=== PATIENT | female | born 1985 | race Caucasian/White ===

== ENCOUNTER 2023-03-25 23:30 | Emergency (ER) | payer BC, SELFPAY ==
--- NOTE | ~2023-03-25 | XR_ITS ---
EXAMINATION: XR clavicle LT DATE: 03/26/2023 00:52 INDICATION: Left shoulder pain. Fall. TECHNIQUE: 2 views of left clavicle were obtained. COMPARISON: None. FINDINGS: There is a comminuted fracture involving middle third of left clavicle. The main distal fra cture fragment demonstrates 2 shaft widths inferior displacement. Coracoclavicular interval is normal . Joint spaces are normal. IMPRESSION: 1. Comminuted fracture of left clavicle. Reviewed, dictated and finalized at location A.
--- NOTE | ~2023-03-25 | XR_ITS ---
EXAMINATION: XR shoulder LT min 2V DATE: 03/26/2023 00:52 INDICATION: Left shoulder pain. Fall. TECHNIQUE: 4 views of left shoulder were obtained. COMPARISON: None. FINDINGS: There is a comminuted fracture involving middle third of left clavicle. The main distal fra cture fragment demonstrates 2 shaft widths inferior displacement. Coracoclavicular interval is normal . Joint spaces are normal. IMPRESSION: 1. Comminuted fracture of left clavicle. Reviewed, dictated and finalized at location A.
[2023-03-25 23:35] VITALS: BP 146/81; PULSE 81; RESP 19; TEMP 36.4; O2SAT 100
[2023-03-26] MEDS: HYDROcodone/acetaminophen (*CRX) 5-325 MG TABLET 1 TAB PO (00:25)
--- NOTE | 2023-03-26 00:58 | ED.GENADULT ---
HPI - General Adult General Chief complaint: Fall Stated complaint: Fall down 9 stairs, left shoulder pain Time Seen by Provider: 03/26/23 00:11 History of Present Illness HPI narrative: Patient is a 37-year-old female who presents the emergency department with chief complaint of left shoulder pain patient reports that she had a few drinks tonight and was walking up the steps slipped and fell patient reports that she landed on her left shoulder which she had previously injured when she was a child patient reports pain with range of motion and reports that the symptoms are worse with movement. Related Data Allergies Allergy/AdvReac Type Severity Reaction Status Date / Time amoxicillin Allergy Swelling Verified 03/25/23 23:32 of Lip/Tongue/Throat Review of Systems Review of Systems: A 10 system review of systems was completed on the patient and is negative except for what is stated in the HPI. Nursing and ancillary documentation was reviewed. Exam Narrative: GENERAL: Well-appearing, well-nourished, and in no acute distress. HEAD: Normocephalic, atraumatic. EYES: PERRLA and EOMI. ENT: Nares clear, no rhinorrhea or epistaxis. Mucous membranes moist. NECK: Supple. CHEST: Clear to auscultation. No respiratory distress. HEART: Regular rate and rhythm. No murmur heard. Normal peripheral pulses. ABDOMEN: Soft, nontender, nondistended, normal active bowel sounds. EXTREMITIES: Normal range of motion except for left upper extremity there is tenderness to palpation in the left shoulder worse with range of motion.. No edema. SKIN: Warm, dry, no rash. NEURO: No focal deficits. Alert and oriented x3. PSYCH: Normal mood and affect. Course Vital Signs Vital signs: Vital Signs Temperature 36.4 C 03/25/23 23:35 Pulse Rate 81 03/25/23 23:35 Respiratory Rate 03/25/23 23:35 Blood Pressure 146/81 H 03/25/23 23:35 Pulse Oximetry 100 03/25/23 23:35 Oxygen Delivery Room Air 03/25/23 23:35 Temperature 36.4 C 03/25/23 23:35 Pulse Rate 81 03/25/23 23:35 Respiratory Rate 19 03/25/23 23:35 Blood Pressure 146/81 H 03/25/23 23:35 Pulse Oximetry 100 03/25/23 23:35 Oxygen Delivery Room Air 03/25/23 23:35 Medical Decision Making MDM Narrative Medical decision making narrative: The patient is currently GCS 15 and showing no signs of intracranial injury. The patient has tenderness in the left shoulder concerning for clavicle fracture. Plain film x-rays of the left shoulder and clavicle showed evidence of displaced clavicle fracture. The patient will be placed in a sling and will be referred to orthopedics Vital Signs Vital Signs: Vital Signs Temperature 36.4 C 03/25/23 23:35 Pulse Rate 81 03/25/23 23:35 Respiratory Rate 03/25/23 23:35 Blood Pressure 146/81 H 03/25/23 23:35 Pulse Oximetry 100 03/25/23 23:35 Oxygen Delivery Room Air 03/25/23 23:35 Temperature 36.4 C 03/25/23 23:35 Pulse Rate 81 03/25/23 23:35 Respiratory Rate 03/25/23 23:35 Blood Pressure 146/81 H 03/25/23 23:35 Pulse Oximetry 100 03/25/23 23:35 Oxygen Delivery Room Air 03/25/23 23:35 Discharge Plan Discharge Clinical Impression: Closed fracture of left clavicle Patient Disposition: Home, Self-Care Condition: Stable Instructions: Antibiotic Form, Clavicle Fracture (DC), How to Use a Sling (ED) Prescriptions: New hydrocodone-acetaminophen 5-325 mg tablet 1 tablet PO Q6H PRN (Reason: pain) 3 Days Qty: 12 0RF Follow-up/Referrals: PHYSICIAN NOT ON STAFF,NONSTAFF [Primary Care Provider] - Linwood Pickett MD [Physician] - Time of Disposition: 01:05
== END 2023-03-26 01:25 | disposition home or self-care (01) ==
PROVIDERS: Emergency Provider Emergency Medicine
DX: S42.022A Displaced fracture of shaft of left clavicle, initial encounter for closed fracture (principal); W10.9XXA Fall (on) (from) unspecified stairs and steps, initial encounter
CPT/HCPCS: 73000; 73030; 99284; A4565; A9270

== ENCOUNTER 2023-08-01 14:08 | Emergency (ER) | payer BC, SELFPAY ==
[2023-08-01 14:25] VITALS: BP 130/107; PULSE 96; RESP 18; TEMP 36.2; O2SAT 98
[2023-08-01 14:35] LABS: Glucose Point of Care 244 mg/dl (65-105)
--- NOTE | 2023-08-01 14:42 | ED.NAVMDI ---
HPI - Nausea/Vomiting/Diarrhea General Chief complaint: Nausea/Vomiting/Diarrhea <Jazmyn Dasilva APRN - Last Filed: 08/01/23 14:45> Stated complaint: high blood sugar <Jazmyn Dasilva APRN - Last Filed: 08/01/23 14:45> Time Seen by Provider: 08/01/23 18:45 <Jazmyn Dasilva APRN - Last Filed: 08/01/23 14:45> Source: patient and family <Jazmyn Dasilva APRN - Last Filed: 08/01/23 14:45> Mode of arrival: ambulatory <Jazmyn Dasilva APRN - Last Filed: 08/01/23 14:45> Limitations: no limitations <Jazmyn Dasilva APRN - Last Filed: 08/01/23 14:45> History of Present Illness HPI Narrative: Patient is a pleasant 37-year-old female past medical history as noted below including type 1 diabetes who presents emergency department today for evaluation of nausea, vomiting, diarrhea that started around 6:00 a.m. this morning with concerns of being in DKA and dehydrated. She wears an insulin pump. She checked her blood sugar at home and it was a little over 200. She denies any chest pain or shortness of breath. Denies any urinary symptoms. states she checked her urine and there were a large amount of ketones. Denies any cough, headache, dizziness, body aches, fever. She states her abdomen just uncomfortable from the nausea and vomiting. <Jazmyn Dasilva APRN - Last Filed: 08/01/23 14:45> Related Data Allergies/Adverse reactions: Allergies Allergy/AdvReac Type Severity Reaction Status Date / Time amoxicillin Allergy Swelling Verified 08/01/23 18:56 of Lip/Tongue/Throat <Jazmyn Dasilva APRN - Last Filed: 08/01/23 14:45> Review of Systems Review of Systems: CONSTITUTIONAL: Denies fever, chills, or sweats. +elevated blood sugar, concerns of dehydration EYES: Denies visual changes, redness, or discharge. ENT: Denies rhinorrhea, congestion, sore throat, or otalgia. +increased thirst CARDIOVASCULAR: Denies chest pain, palpitations, or edema. RESPIRATORY: Denies cough or dyspnea. GASTROINTESTINAL: Denies abdominal pain + nausea, vomiting, & diarrhea. GENITOURINARY: Denies dysuria or hematuria. SKIN: Denies rash or itching. MUSCULOSKELETAL: Denies back pain, joint pain, or myalgia. NEUROLOGIC: Denies headache, numbness, or weakness. PSYCHIATRIC: Denies anxiety or depression. <Jazmyn Dasilva APRN - Last Filed: 08/01/23 14:45> All systems reviewed & are unremarkable except as noted in HPI and below <Jazmyn Dasilva [employer] PRINCIPAL - Last Filed: 08/01/23 14:45> Exam Narrative: GENERAL: Well-appearing, well-nourished, overweight female resting on chair, and in no acute distress. HEAD: Normocephalic, atraumatic. EYES: PERRLA and EOMI. ENT: Nares clear, no rhinorrhea or epistaxis. Mucous membranes moist NECK: Supple. CHEST: Clear to auscultation. No respiratory distress. HEART: Regular rate and rhythm. No murmur heard. Normal peripheral pulses. ABDOMEN: Soft, nontender, nondistended, normal active bowel sounds. EXTREMITIES: Normal range of motion. No edema. SKIN: Warm, dry, no rash. NEURO: No focal deficits. Alert and oriented x3. CN II-XII grossly intact PSYCH: Normal mood and affect. <Jazmyn Dasilva [employer] PRINCIPAL - Last Filed: 08/01/23 14:45> GENERAL: Well-appearing, well-nourished, overweight female resting on chair, and in no acute distress. HEAD: Normocephalic, atraumatic. EYES: PERRLA and EOMI. ENT: Nares clear, no rhinorrhea or epistaxis. Mucous membranes moist NECK: Supple. CHEST: Clear to auscultation. No respiratory distress. HEART: Regular rate and rhythm. No murmur heard. Normal peripheral pulses. ABDOMEN: Soft, No significant tenderness throughout abdomen, nondistended, normal active bowel sounds. EXTREMITIES: Normal range of motion. No edema. SKIN: Warm, dry, no rash. NEURO: No focal deficits. Alert and oriented x3. CN II-XII grossly intact PSYCH: Normal mood and affect. <Sarah N. Gaudreault, PA-C - Last Filed: 08/01/23 22:33> Course Vital Signs Vital signs:
[2023-08-01 14:56] LABS: Alveolar/Arterial O2 Gradient 29.6 mmHg; Carboxyhemoglobin 0.3 % THb (0-2.0); Fractional Inspired Oxygen 21 %; HCO3 ABG 23.8 mEq/l (22.0-26.0); Methemoglobin ABG 0.2 %THb (0-1.5); Oxygen Content ABG 19.1 %vol (16.0-22.0); Oxygen Saturation ABG 95.7 % (95.0-100.0); Oxyhemoglobin 94.3 % THb (90.0-100.0); PCO2 ABG 36.5 mmHg (35.0-45.0); PO2 ABG 76.4 mmHg (80.0-100.0); PO2 FiO2 Ratio Arterial Blood 3.64 %; Reduced Hemoglobin 5.2 %THb (0-5.0); Total Hemoglobin 14.4 g/dL (12.0-18.0); pH ABG 7.433 (7.350-7.450)
[2023-08-01 14:57] LABS: Device ROOM AIR; Modified Allen's Test Pass; Site Drawn RIGHT RADIAL
[2023-08-01] MEDS: SODIUM CHLORIDE 0.9% IV 1,000 ML 999 ML IV CONT ×3 (15:00→19:37)
[2023-08-01] MEDS: ONDANSETRON INJ 4 MG/2 ML VIAL IV PUSH ×2 (15:00→19:51)
[2023-08-01 15:10] LABS: Basophils Absolute Auto 0.1 K/mm3 (0.0-0.1); Basophils Percent Auto 0.6 % (0.2-1.2); Eosinophils Absolute Auto 0.1 K/mm3 (0-0.3); Eosinophils Percent Auto 0.5 % (0-4.4); Hematocrit 40.8 % (37.0-47.0); Hemoglobin 13.4 g/dL (12.0-15.0); Immature Granulocyte Absolute 0.04 K/mm3 (0.00-0.031); Immature Granulocyte Percent A 0.3 % (0-0.5); Lymphocytes Absolute Auto 1.55 K/mm3 (0.9-3.2); Lymphocytes Percent Auto 13.3 % (18.3-44.2); Mean Corpuscular HGB Conc 32.8 g/dl (32-36); Mean Corpuscular Hemoglobin 30.3 pg (26-34); Mean Corpuscular Volume 92.3 fl (80-100); Mean Platelet Volume 8.5 fl (7.4-10.4); Monocytes Absolute Auto 0.4 K/mm3 (0.1-0.6); Monocytes Percent Auto 3.4 % (2.6-8.5); Neutrophils Absolute Auto 9.5 K/mm3 (1.3-6.7); Neutrophils Percent Auto 81.9 % (45.5-73.1); Platelet Count Result 352 k/mm3 (150-375); Red Blood Count 4.42 M/mm3 (4.2-5.4); Red Cell Distribution Width 13.3 % (11.5-14.5); White Blood Count 11.6 K/mm3 (4.5-10.0)
[2023-08-01 15:16] LABS: Appearance Urine Cloudy (Clear); Bacteria Urine 3+ /hpf; Bilirubin Urine Negative (Negative); Blood Urine Negative (Negative); Color Urine Yellow (Yellow); Glucose Urine UA 3+ mg/dL (Negative); Ketones Urine 3+ mg/dL (Negative); Leukocyte Esterase Ur Negative LEU/UL (Negative); Nitrate Urine Negative (Negative); Non Pathogenic Casts 0-2; Protein Urine 1+ mg/dL (Negative); RBC Urine 0-2 /hpf (0-2); Squamous Epithelial Cell Urine Few /hpf (Few); Urobilinogen Urine 0.2 mg/dL (<2.0)
[2023-08-01 15:21] LABS: Hemoglobin A1C 8.2 % (<5.7)
[2023-08-01 15:24] LABS: Add Urine Microscopic? YES
[2023-08-01 15:46] LABS: Influenza A QL RT-PCR Negative (Negative); Influenza B QL RT-PCR Negative (Negative); RSV RNA, RT-PCR Negative (Negative); SARS-CoV-2 RNA PCR Negative (Negative)
[2023-08-01 16:03] LABS: Lactic Acid Reflex 2.4 mmol/L (0.7-2.0)
[2023-08-01 16:05] LABS: Alanine Aminotransferase 23 U/L (6-35); Albumin Level 4.8 g/dL (3.5-5.1); Alkaline Phosphatase 92 U/L (38-126); Anion Gap 16 mmol/L (8-16); Aspartate Amino Transferase 23 U/L (14-36); Bilirubin,Total 0.6 mg/dL (0.2-1.3); Blood Urea Nitrogen 15 mg/dL (7-17); Calcium 9.3 mg/dL (8.4-10.2); Carbon Dioxide 19 mmol/L (22-30); Chloride 101 mmol/L (98-107); Estimated CRCL calculation 165 ml/min; Estimated Glomerular Filt Rate > 60; Glucose 242 mg/dL (65-110); Magnesium 1.5 mg/dL (1.6-2.3); Phosphorus 4.1 mg/dL (2.5-4.5); Potassium 4.3 mmol/L (3.4-5.0); Sodium 136 mmol/L (137-145)
[2023-08-01 16:09] LABS: Beta-Hydroxybutyrate/Acetoacetate 0.78 mmol/L (0.02-0.27)
--- NOTE | 2023-08-01 17:50 | PC.NURSE ---
ok per provider to give 2000ml NS instead of 2044ml. patient did receive IVF
[2023-08-01 18:07] LABS: Reflex Lactic Acid Yes or No Add Lactic
[2023-08-01 19:00] VITALS: PULSE 99; RESP 19; O2SAT 97
[2023-08-01 19:01] VITALS: BP 153/82; PULSE 99; RESP 20; O2SAT 98
--- NOTE | 2023-08-01 19:14 | PC.NURSE ---
BSSR to Chava SHAH
[2023-08-01 19:20] VITALS: BP 147/83; PULSE 99; RESP 19; TEMP 37.2; O2SAT 97
[2023-08-01 19:40] LABS: Glucose Point of Care 191 mg/dl (65-105)
[2023-08-01] MEDS: MAGNESIUM SULF 2 GM/WATER 50ML 2 GM/50 ML BAG IVPB (19:51)
[2023-08-01 20:00] LABS: Lactic Acid 1.1 mmol/L (0.7-2.0)
--- NOTE | 2023-08-01 20:39 | PC.NURSE ---
Patient stated that PO challenge went well and no reports of N/V.
--- NOTE | 2023-08-01 20:43 | ED.NAVMDI ---
HPI - Nausea/Vomiting/Diarrhea General Chief complaint: Nausea/Vomiting/Diarrhea Stated complaint: high blood sugar Time Seen by Provider: 08/01/23 18:45 Source: patient and family Mode of arrival: ambulatory Limitations: no limitations Related Data Allergies Allergy/AdvReac Type Severity Reaction Status Date / Time amoxicillin Allergy Swelling Verified 08/01/23 18:56 of Lip/Tongue/Throat Course Vital Signs Vital signs: Vital Signs Temperature 97.1 F L 08/01/23 14:25 Pulse Rate 96 08/01/23 14:25 Respiratory Rate 18 08/01/23 14:25 Blood Pressure 130/107 H 08/01/23 14:25 Pulse Oximetry 98 08/01/23 14:25 Oxygen Delivery Room Air 08/01/23 14:25 Temperature 98.9 F 08/01/23 19:20 Pulse Rate 99 08/01/23 19:20 Respiratory Rate 19 08/01/23 19:20 Blood Pressure 147/83 H 08/01/23 19:20 Pulse Oximetry 97 08/01/23 19:20 Oxygen Delivery Room Air 08/01/23 14:25 MDM - Nausea/Vomiting/Diarrhea Lab Data 08/01/23 14:58 08/01/23 14:58 Labs: Lab Results 08/01/23 08/01/23 08/01/23 Range/Units 14:32 14:54 14:57 WBC (4.5-10.0) K/mm3 RBC (4.2-5.4) M/mm3 Hgb (12.0-15.0) g/dL Hct (37.0-47.0) % MCV (80-100) fl MCH (26-34) pg MCHC (32-36) g/dl RDW (11.5-14.5) % Plt Count (150-375) k/mm3 MPV (7.4-10.4) fl Immature Gran % (Auto) (0-0.5) % Neut % (Auto) (45.5-73.1) % Lymph % (Auto) (18.3-44.2) % [place] % (Auto) (2.6-8.5) % Eos % (Auto) (0-4.4) % Baso % (Auto) (0.2-1.2) % Lymph # (Auto) (0.9-3.2) K/mm3 [place] # (Auto) (0.1-0.6) K/mm3 Eos # (Auto) (0-0.3) K/mm3 Baso # (Auto) (0.0-0.1) K/mm3 Abs Immat Gran (auto) (0.00-0.031) K/mm3 Absolute Neuts (auto) (1.3-6.7) K/mm3 Absolute Nucleated RBC (0.0-0.012) K/mm3 Nucleated RBC % (0.0-0.2) % Methemoglobin 0.2 (0-1.5) %THb Sodium (137-145) mmol/L Potassium (3.4-5.0) mmol/L Chloride (98-107) mmol/L Carbon Dioxide (22-30) mmol/L Anion Gap (8-16) mmol/L BUN (7-17) mg/dL Creatinine (0.7-1.0) mg/dL Estim Creat Clear Calc ml/min Estimated GFR (59 - ) Glucose (65-110) mg/dL POC Capillary Glucose 244 H (65-105) mg/dl Hemoglobin A1c (<5.7) % Lactic Acid 2.4 H (0.7-2.0) mmol/L Calcium (8.4-10.2) mg/dL Phosphorus (2.5-4.5) mg/dL Magnesium (1.6-2.3) mg/dL Total Bilirubin (0.2-1.3) mg/dL AST (14-36) U/L ALT (6-35) U/L Alkaline Phosphatase (38-126) U/L Total Protein (6.3-8.2) g/dL Albumin (3.5-5.1) g/dL Beta-Hydroxybutyrate/Acetoacetate (0.02-0.27) mmol/L Urine Color Yellow (Yellow) Urine Appearance Cloudy H (Clear) Urine pH 6.0 (5.0-9.0) Ur Specific [place] 1.040 H (1.001-1.035) Urine Protein 1+ H (Negative) mg/dL Urine Glucose (UA) 3+ H (Negative) mg/dL Urine Ketones 3+ H (Negative) mg/dL Ur Blood (Man) Negative (Negative) Urine Nitrate Negative (Negative) Urine Bilirubin Negative (Negative) Urine Urobilinogen 0.2 (<2.0) mg/dL Leukocyte Esterase Rfl Negative (Negative) VIK/UL Urine RBC 0-2 (0-2) /hpf Urine WBC 6-10 H /hpf Ur Squamous Epith Cells Few (Few) /hpf Urine Bacteria 3+ H /hpf Urine Casts 0-2 Influenza A (RT-PCR) Negative (Negative) Influenza B (RT-PCR) Negative (Negative) RSV (RT-PCR) Negative (Negative) SARS-CoV-2 RNA (RT-PCR) Negative (Negative) 08/01/23 08/01/23 08/01/23 Range/Units 14:58 19:36 19:38 WBC 11.6 H (4.5-10.0) K/mm3 RBC 4.42 (4.2-5.4) M/mm3 Hgb 13.4 (12.0-15.0) g/dL Hct 40.8 (37.0-47.0) % MCV 92.3 (80-100) fl MCH 30.3 (26-34) pg MCHC 32.8 (32-36) g/dl RDW 13.3 (11.5-14.5) % Plt Count 352 (150-375) k/mm3 MPV 8.5 (7.4-10.4) fl Immature Gran % (Auto) 0.3 (0-0.5) % Neut % (Auto) 81.
[2023-08-01 20:55] VITALS: BP 134/83; PULSE 84; RESP 16; TEMP 36.3; O2SAT 100
[2023-08-01 20:55] LABS: Glucose Point of Care 183 mg/dl (65-105)
== END 2023-08-01 20:56 | disposition home or self-care (01) ==
PROVIDERS: Nurse Practitioner; Emergency Provider Physician Assistant
DX: K52.9 Noninfective gastroenteritis and colitis, unspecified (principal); R11.2 Nausea with vomiting, unspecified; E10.9 Type 1 diabetes mellitus without complications; Z96.41 Presence of insulin pump (external) (internal); Z79.4 Long term (current) use of insulin; Z20.822 Contact with and (suspected) exposure to COVID-19
CPT/HCPCS: 36415; 36600; 80053; 81001; 81025; 82010; 82375; 82805; 82948; 83036; 83050; 83605; 83735; 84100; 85025; 87086; 87088; 87637; 96361; 96365; 96375; 99284; J2405; J3475; J7030